=== PATIENT | female | born 1965 | race Caucasian/White ===

== ENCOUNTER 2018-07-25 13:29 | Outpatient (CLI) | payer OTHER ==
[2018-07-25 14:46] LABS: Mean Corpuscular HGB CONC 33.5 g/dL (32.0-36.0); Mean Corpuscular Hemoglobin 29.2 pg (27.0-31.0); Mean Corpuscular Volume 87.1 fL (78.0-98.0); Mean Platelet Volume 7.7 fL (7.4-10.4); Platelet Count 208 thou/uL (130-400); RBC Distribution Width 12.1 % (11.5-14.5); Red Blood Cell (RBC) Count 4.45 mill/uL (4.20-5.40); White Blood Cell (WBC) Count 5.2 thou/uL (4.8-10.8)
== END 2018-07-25 13:30 | disposition home or self-care (01) ==
LOC: LABBT 13:29
PROVIDERS: ATTEND Orthopaedic Surgery
DX: Z01.812 Encounter for preprocedural laboratory examination (principal); S83.207A Unspecified tear of unspecified meniscus, current injury, left knee, initial encounter
CPT/HCPCS: 85027

== ENCOUNTER 2018-07-27 08:29 | Day surgery (SDC) | payer OTHER ==
[2018-07-25 13:48] VITALS: BMI 28.3
[2018-07-27] MEDS ORDERED: CEFAZOLIN 2 GM/50 ML BAG ONE (09:48)
[2018-07-27] MEDS ORDERED: Midazolam HCl 2 mg/2 ml Vial ONE (11:30)
[2018-07-27] MEDS ORDERED: Fentanyl 100 MCG/2 ML VIAL ONE (11:34)
[2018-07-27] MEDS ORDERED: Bupivacaine/Epinephrine 0.25% 30 ML VIAL ONE (11:53)
[2018-07-27] MEDS ORDERED: Lidocaine 1% (PF) 30 ML VIAL ONE (11:53)
--- NOTE | 2018-07-27 15:28 | OP ---
DATE OF PROCEDURE: 07/27/2018 PREOPERATIVE DIAGNOSES: Lateral meniscus tear degenerative tear , lateral femur chondral injury POSTOPERATIVE DIAGNOSES: 1. Grade 1-2 patellofemoral cartilage changes noted. 2. Chronic degenerative lateral meniscus tear. 3. Grade 2-3 changes, lateral femoral condyle, 5 mm defect. 4. Grade 1 changes, medial femoral condyle. No medial meniscus tear. ANESTHESIA: Dr Coronel the patient received a LMA with 25 mL of 0.25% Marcaine with epinephrine preprocedure, which was washed out and then 20 mL of lidocaine plain postprocedure. TOURNIQUET TIME: 14 minutes at 300 mmHg. ANTIBIOTICS: Ancef 2 g. COMPLICATIONS: None. INDICATIONS FOR PROCEDURE: Ms. Saravia is a 53-year-old female, who presented with left knee pain for about 6 months. The patient's MRI at the [facility], which showed no acute fracture, but degenerative lateral meniscus changes and cartilage injury, intact collateral ligament, and ACL, PCL, medial meniscus tear. I discussed with the patient risks and benefits of her left knee arthroscopy to include pain, scar, bleeding, infection, damage to vital structures, continued pain, arthritis, progression to total knee. The patient understood risks and benefits of surgery and would like to proceed. DESCRIPTION OF PROCEDURE: Time-out was performed designating the patient's left upper extremity as the operative site, based on site, consent, and markings. After time-out, the patient had lateral portal placed and a medial portal placed. I had injected the Marcaine with epinephrine preprocedure, which was washed out after I brought the tourniquet up and left for 14 minutes. I made my medial portal, excised my fat pad visualized within the knees, only grade 1-2 changes noted in the patella, which were fibrillated, which I shaved down, there was intact ACL and PCL, looked into the gutters and saw osteophytes, as well as some osteophytes in the notch. There were only grade 2 changes noted on the lateral femoral condyle. The patient had no medial meniscus tear, but did have some areas of grade 1 and one small area of grade 2-3 on a lateral femoral condyle. I debrided out the meniscus. I gently took down fibrillations on the patella as well as the lateral compartment and just a little area of the medial compartment. Otherwise, I finished procedure, washed, closed with 3-0 nylon. I injected 20% lidocaine plain postprocedure in the knee joint. The patient will be weightbearing as tolerated. The patient will be followed up in 10 to 14 days. Job ID: [id number]
[2018-07-27] MEDS ORDERED: Ondansetron PF 4 MG/2 ML Vial ONE (22:47)
[2018-07-27] MEDS ORDERED: PROPOFOL 200 MG/20 ML VIAL ONE (22:47)
[2018-07-27] MEDS ORDERED: Atropine Sulfate 0.4 mg/1 ml Vial ONE (22:47)
[2018-07-27] MEDS ORDERED: Lidocaine 1% PF 5 ML VIAL ONE (22:47)
[2018-07-27] MEDS ORDERED: Glycopyrrolate 0.2 MG/ML 5 ML SYRINGE ONE (22:47)
== END 2018-07-27 14:36 | disposition home or self-care (01) ==
LOC: SDC 08:29
PROVIDERS: ATTEND Orthopaedic Surgery
PROC: 0SBD4ZZ Excision of Left Knee Joint, Percutaneous Endoscopic Approach (ICD-10-PCS; principal; 2018-07-27)
PROC: 0SBD4ZZ Excision of Left Knee Joint, Percutaneous Endoscopic Approach (ICD-10-PCS; 2018-07-27)
DX: S83.282A Other tear of lateral meniscus, current injury, left knee, initial encounter (principal); M25.762 Osteophyte, left knee; M25.862 Other specified joint disorders, left knee; Z79.818 Long term (current) use of other agents affecting estrogen receptors and estrogen levels
CPT/HCPCS: G8978-GP-CJ; G8979-GP-CJ; G8980-GP-CJ; J0461; J2001; J2250; J2405; J2704; J3010

== ENCOUNTER 2022-02-24 10:37 | Outpatient (CLI) | payer OTHER | END 2022-02-24 10:38 | disposition home or self-care (01) | LOC: TBSIIMAG 10:37 | PROVIDERS: ATTEND Internal Medicine | DX: M47.26 Other spondylosis with radiculopathy, lumbar region (principal); M41.9 Scoliosis, unspecified; M48.061 Spinal stenosis, lumbar region without neurogenic claudication; M48.07 Spinal stenosis, lumbosacral region | CPT/HCPCS: 72148 ==

== ENCOUNTER 2023-12-15 07:53 | Day surgery (SDC) | payer OTHER ==
[2023-12-07 09:35] VITALS: BMI 30.7
[2023-12-15] MEDS ORDERED: LevoFLOXacin D5W 500 mg (100 mL) BAG ONE (10:15)
[2023-12-15] MEDS ORDERED: fentaNYL PF 100 MCG/2 ML SYRINGE ONE (10:53)
[2023-12-15] MEDS ORDERED: PROPOFOL 20 ML ONE (10:53)
[2023-12-15] MEDS ORDERED: Dexamethasone 4 mg/ml Vial ONE (10:54)
[2023-12-15] MEDS ORDERED: Lidocaine 1% PF 5 ML VIAL ONE (10:54)
[2023-12-15] MEDS ORDERED: Ondansetron PF 4 MG/2 ML Vial ONE (10:54)
[2023-12-15] MEDS ORDERED: Midazolam HCl 2 mg/2 ml Vial ONE (10:54)
[2023-12-15] MEDS ORDERED: Glycopyrrolate 0.2 MG/ML 5 ML SYRINGE ONE (10:56)
[2023-12-15] MEDS ORDERED: PHENYLEPHRINE-NS 100 MCG/ML 10 ML SYRINGE ONE (11:38)
[2023-12-15] MEDS ORDERED: Phenazopyridine HCl 100 MG TAB ONE (12:26)
== END 2023-12-15 17:35 | disposition home or self-care (01) ==
LOC: SDC 07:53
PROVIDERS: ATTEND Urology
PROC: 0TU Urinary System, Supplement (ICD-10-PCS; principal; 2023-12-15)
DX: N39.3 Stress incontinence (female) (male) (principal); G43.909 Migraine, unspecified, not intractable, without status migrainosus; Z90.710 Acquired absence of both cervix and uterus; Z90.722 Acquired absence of ovaries, bilateral; Z98.890 Other specified postprocedural states; Z79.899 Other long term (current) drug therapy
CPT/HCPCS: J1100; J1956; J2250; J2405; J2704; L8606